=== PATIENT | male | born 1950 ===

== ENCOUNTER 2019-08-06 21:10 | Inpatient (IN) ==
--- NOTE | 2019-08-06 23:23 | Emergency Department Note ---
Lower Extremity Injury HPI - General Chief Complaint: Extremity Injury, Lower Stated Complaint: right knee injury Time Seen by Provider: 08/06/19 21:19 Source: patient Mode of arrival: wheelchair Limitations: physical limitation - History of Present Illness HPI Narrative: This patient took a fall at home twisted his right knee and has sustained a nondisplaced fracture of the proximal tibia. He is a postpolio patient and is in general weak and now cannot walk on the leg. - Related Data Home Medications Medication Instructions Recorded Confirmed No Known Home Meds 08/06/19 08/06/19 Allergies Allergy/AdvReac Type Severity Reaction Status Date / Time No Known Drug Allergies Allergy Unverified 08/06/19 21:17 Review of Systems All systems ED: reviewed and negative except as stated. Past Medical History - Past Medical History Surgical history ED: Reports: hip replacement, tonsillectomy - Social History smoking status: Current every day smoker Physical Exam His right knee shows some mild tenderness below the knee on the proximal tibia. Limitations: physical limitation General appearance: alert Head: atraumatic Eye: Present: normal appearance ENT: Present: normal exam Neck: Present: normal inspection Chest: Present: normal inspection Respiratory: Present: normal lung sounds bilaterally Cardiovascular: Present: regular rate, normal rhythm, normal heart sounds Neurological: Present: alert Psychiatric: Present: normal affect Skin: Present: warm, dry Course Vital Signs Temperature 97.8 F 08/06/19 21:12 Pulse Rate 78 08/06/19 21:12 Respiratory Rate 18 08/06/19 21:12 Blood Pressure 154/97 08/06/19 21:12 Pulse Oximetry (%) 97 08/06/19 21:12 Temperature 97.8 F 08/06/19 21:12 Pulse Rate 78 08/06/19 21:12 Respiratory Rate 18 08/06/19 21:12 Blood Pressure 154/97 08/06/19 21:12 Pulse Oximetry (%) 97 08/06/19 21:12 Extremity Injury, Lower - MDM Narrative Medical decision making narrative: X-ray shows a nondisplaced crack of the right proximal tibia that is confirmed on CT scan. I discussed case with Dr. Okeefe and we will admit him to the hospital for repair. - Radiology Data Radiology results reviewed: Yes I reviewed the patient's radiology results. Disposition Pt seen by FIELD INSPECTOR/PA only: No Clinical Impression: Tibia fracture Disposition: Xfer As Outpt/Obs ([facility]) Condition: Good Time of Disposition: 23:22
[2019-08-06] MEDS ORDERED: ONDANSETRON 4 MG/2 ML VIAL IV PRN (23:24)
[2019-08-07 00:26] LABS: Basophils # (Auto) 0.1 K/mcL (0.0-0.3); Basophils % (Auto) 0.5 % (0.0-2.0); Eosinophils # (Auto) 0 K/mcL (0.0-0.7); Eosinophils % (Auto) 0.2 % (0.0-7.0); Granulocytes % (Auto) 82.9 % (38.0-78.0); Hemoglobin 15.3 g/dL (13.5-16.5); Lymphocytes # (Auto) 1.7 K/mcL (1.5-4.8); Mean Cell Volume 88.2 fL (80.0-100.0); Mean Corpuscular HGB Conc 32.6 g/dL (31.0-36.0); Mean Platelet Volume 7.6 fL (7.4-10.4); Monocytes # (Auto) 0.6 K/mcL (0.1-0.9); Monocytes % (Auto) 4.4 % (1.0-12.0); Platelet Count 281 K/mcL (140-440); RBC 5.33 M/mcL (4.50-5.90); Red Cell Distribution Width 16.1 % (11.5-14.5); WBC 14.1 K/mcL (4.5-11.0)
[2019-08-07 01:11] LABS: Appearance,Urine CLEAR; Bacteria,Urine 0 /hpf (0); Bilirubin,Urine NEG (NEG); Color,Urine STRAW; Culture Indicated,Urine NO; Glucose,Urine (UA) NEGATIVE (NEG); Ketones,Urine 5/TR mg/dL (NEG); Leukocyte Esterase,Urine NEG /uL (NEG); Mucus,Urine FEW /hpf (0); Nitrate,Urine NEG (NEG); Protein,Urine NEG (NEG); Specific Gravity,Urine 1.006 (1.000-1.035); Urine Blood 0.2 mg/dL (<0.03); Urine RBC 0 /hpf (0-1); Urine Squamous Epithelial Cell 0 /hpf (0-4); Urine WBC 0 /hpf (0-4); Urobilinogen,Urine NEG (NEG)
[2019-08-07 01:23] LABS: ALT/SGPT 13 U/l (0-40); AST/SGOT 16 U/l (0-37); Albumin 4.2 gm/dL (3.2-5.2); Albumin/Globulin Ratio 1.3 (1.0-2.3); Alkaline Phosphatase 66 U/L (39-117); Bilirubin,Total 0.7 mg/dL (0.0-1.0); Blood Urea Nitrogen 18 mg/dl (8-23); Calcium 9.6 mg/dl (8.6-10.4); Carbon Dioxide 23 mmol/L (22-30); Chloride 100 mmol/L (96-108); Globulin 3.2 gm/dL (2.2-3.7); Glomerular Filtration Rate 111; Glucose 95 mg/dL (70-105)
[2019-08-07] MEDS ORDERED: HYDROcodone/APAP 5/325MG TABLET PO PRN ×2 (02:49→15:19)
[2019-08-07] MEDS ORDERED: HYDROcodone/APAP 5/325MG TABLET PO ONE (03:01)
[2019-08-07] MEDS: LACTATED RINGERS 1,000 ML IV SCH ×6 (03:10→22:21)
--- NOTE | 2019-08-07 04:06 | XRay Report ---
CLINICAL INFORMATION: pre-op COMPARISON: None. FINDINGS: Cardiomediastinal silhouette and pulmonary vessels are normal. Lung volumes are elevated suggesting COPD. No infiltrates or effusions. Moderate dextroscoliosis with severe degenerative disc disease throughout the thoracic spine with large marginal osteophytes appreciated IMPRESSION: Probable COPD. No acute disease Interpreted and Authenticated by: Ben Carcamo 08/07/19
--- NOTE | 2019-08-07 06:23 | Cat Scan Report ---
CLINICAL INFORMATION: fall injury right knee COMPARISON: Plain films 08/06/2019 TECHNIQUE: 0.625 mm helical slices were obtained from the right hip through the proximal one third of the tibia and fibula. Following reconstruction, 2.5 mm sagittal, coronal and axial reformatted images were processed and reviewed in bone and soft tissue windows. FINDINGS: A long intramedullary eloy transfixes an old solidly unified oblique fracture of the distal femoral diaphysis. There is mild bayoneting deformity. There is no evidence of resorption about the eloy or other surgical complication. A subtle acute, oblique fracture of the proximal tibial diaphysis and metaphysis is appreciated. No displacement. Moderate lipohemarthrosis is seen in the patellofemoral joint implies the fracture communicates with the joint space. Moderate deformity of the patella representing an malunified old unified patellar fracture. Patellofemoral and tibiofemoral joint spaces are, otherwise, normal. Increased soft tissue density seen within the right hip capsule most likely indicating effusion. There is a 3 mm loose body in the superior joint. Severe atrophy of the anterior compartment musculature and moderate atrophy of the posterior compartment musculature appreciated. No focal soft tissue lesions. IMPRESSION: Subtle obliquely oriented nondisplaced fracture of the proximal tibial metaphysis and diaphysis. Moderate lipohemarthrosis in the patellofemoral compartment indicates fracture communication with the joint space. ORIF old distal femoral diaphyseal fracture which is solid unified with mild bayoneting deformity. Solid unified malunified old patellar fracture. Severe atrophy of the anterior compartment musculature and moderate atrophy posterior compartment musculature. Increased intracapsular density density right hip likely represents an effusion. There is a 3 mm loose body superior to the femoral neck. Consider aspiration. Interpreted and Authenticated by: Ben Carcamo 08/07/19
--- NOTE | 2019-08-07 06:25 | XRay Report ---
CLINICAL INFORMATION: trauma COMPARISON: None. FINDINGS: There is an oblique hairline fracture through the proximal tibial metadiaphysis. Malunified old fracture of the patella demonstrates mild deformity. Patient also has a remote oblique fracture of the distal femoral diaphysis which is solid unified and transfixed IM eloy and screw. Mild resultant bayonet deformity. Moderate effusion present in the patellofemoral joint. Moderate patellofemoral and tibiofemoral degeneration noted IMPRESSION: Oblique hairline fracture of the proximal tibia metadiaphysis. Moderate patellar femoral effusion - likely posttraumatic. Malunified solid unified old patellar fracture. ORIF remote distal femoral fracture solid unified with bayonet deformity Interpreted and Authenticated by: Ben Carcamo 08/07/19
[2019-08-07] MEDS ORDERED: POLYETHYLENE GLYCOL 3350 17 GM PACKET PO PRN ×2 (06:41→15:19)
[2019-08-07] MEDS ORDERED: MAGNESIUM HYDROXIDE 30 ML ORAL.SUSP PO PRN ×2 (06:41→15:19)
[2019-08-07] MEDS ORDERED: FLEETS ADULT ENEMA PR PRN ×2 (06:41→15:19)
[2019-08-07] MEDS ORDERED: BISACODYL 10 MG SUPP.RECT PR PRN ×2 (06:41→15:19)
--- NOTE | 2019-08-07 07:35 | History and Physical Report ---
DATE OF ADMISSION: 08/07/2019 CHIEF COMPLAINT: Right proximal tibia fracture. HISTORY OF PRESENT ILLNESS: The patient is a 69-year-old male who has a history of polio, who yesterday evening fell while getting up out of his chair, resulting in a twisting type injury to his right lower extremity. He had immediate pain and inability to bear weight and was brought to the emergency department for evaluation and treatment. He was found to have a proximal tibia fracture with minimal displacement. He was admitted overnight. Upon presentation this morning he complains of right tibia pain. PAST MEDICAL HISTORY: Only significant for polio. PAST SURGICAL HISTORY: He had bilateral femoral shaft fractures and underwent surgery with IM nails. 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 He also had a muscle transplants for his right lower extremity to restore extensor mechanism. He had a hernia repair. ALLERGIES: No known drug allergies. MEDICATIONS: At home, none on a regular basis. FAMILY HISTORY: Noncontributory. SOCIAL HISTORY: He does smoke daily. He ambulates utilizing crutches and is very weak, primarily uses left lower extremity with the right side being weaker. He does have a son in [place] as well as a brother in [place]. REVIEW OF SYSTEMS: A 10-point review is otherwise negative other than mentioned above. PHYSICAL EXAMINATION: VITAL SIGNS: He is afebrile with temperature of 98.3, heart rate 66, blood pressure 127/79, O2 on room air 98% saturation. Heart: regular rate Pulmonary: clear bilaterally. EXTREMITIES: Reveals focal injury to his right lower extremity. Knee range of motion braces were removed. His skin is intact. His compartments are soft. His lower extremity has diffuse tenderness in the proximal aspect of his leg. Sensation intact in his foot. He can dorsiflex and plantarflex as well as flex all digits. RADIOGRAPHIC STUDIES: Plain films of his right knee demonstrate a nondisplaced transverse fracture of the proximal tibia and CT demonstrates same. LABORATORY DATA: He has a white count of 14.1, H and H of 15 and 47 with a platelet count of 281. Chemistry has a creatinine of 0.5, glucose 95. UA is negative. ASSESSMENT AND PLAN: A 69-year-old male with polio who has a closed right proximal tibia fracture with minimal displacement. I discussed this with him at length. He has several questions regarding treatment options. I discussed operative and nonoperative treatment both with him, which I think both are valid options. If treated nonoperatively he would be immobilized with restricted range of motion at least for a 6-week pamela until some callus forms and then allow full range of motion along with improved pain by that time. Surgery would allow him to have a range of motion right away, and likely improve his pain more quickly; however, his weightbearing status would still be protected up to 10-12 weeks so we would not restore his weightbearing status immediately. I had a lengthy discussion with him, along with his son. At this point, he does want to proceed with surgery. Plan will be for open reduction and internal fixation of his right proximal tibia fracture. I discussed the risks, benefits, alternatives, and postop recovery with him at length. He understands. I did have a hospitalist consulting as he does not seek regular medical treatment and evaluation but overall the labs appear to be healthy. DLW:[email or web address] Job ID: [id number] Doc ID: [id number] Prasanna Okeefe MD MTDD
[2019-08-07] MEDS ORDERED: DOCUSATE SODIUM 100 MG CAPSULE PO SCH (09:00)
[2019-08-07] MEDS ORDERED: IPRATROPIUM/ALBUTEROL 3 ML AMPUL.NEB NEB PRN ×2 (10:27→14:01)
[2019-08-07] MEDS ORDERED: SCOPOLAMINE 1 PATCH PATCH TOPICAL PRN (10:27)
[2019-08-07] MEDS ORDERED: ceFAZolin 2 GM in DEXTROSE 5% IN WATER 50 ML IV SCH (11:30)
[2019-08-07] MEDS ORDERED: DEXAMETHASONE 10 MG/ML VIAL IV ONE (12:34)
[2019-08-07] MEDS ORDERED: KETAMINE 100 MG/ML ML IV ONE (12:34)
[2019-08-07] MEDS ORDERED: fentaNYL 100 MCG/2 ML VIAL IV ONE (12:34)
[2019-08-07] MEDS ORDERED: ePHEDrine 50 MG/ML AMPUL IV ONE (12:34)
[2019-08-07] MEDS ORDERED: LIDOCAINE HCL/PF 100 MG/5 ML SYRINGE IV ONE (12:34)
[2019-08-07] MEDS ORDERED: MIDAZOLAM 2 MG/2 ML VIAL IV ONE (12:34)
[2019-08-07] MEDS ORDERED: ONDANSETRON 4 MG/2 ML VIAL IV ONE (12:34)
[2019-08-07] MEDS ORDERED: PROPOFOL 200 MG/20 ML VIAL IV ONE (12:34)
[2019-08-07] MEDS ORDERED: VANCOMYCIN 1 GM VIAL TOPICAL ONE (13:45)
[2019-08-07] MEDS ORDERED: 0.9 % SODIUM CHLORIDE 10 ML SYRINGE IV SCH ×2 (14:00→22:00)
[2019-08-07] MEDS ORDERED: METHOCARBAMOL 1,000 MG/10 ML VIAL IV PRN (14:01)
[2019-08-07] MEDS ORDERED: FLUMAZENIL 0.1 MG/ML ML IV PRN (14:01)
[2019-08-07] MEDS ORDERED: ONDANSETRON 4 MG/2 ML VIAL IV PRN ×3 (14:01→15:19)
[2019-08-07] MEDS ORDERED: fentaNYL 100 MCG/2 ML VIAL IV PRN (14:01)
[2019-08-07] MEDS ORDERED: diphenhydrAMINE 50 MG/ML VIAL IV PRN ×2 (14:01→15:19)
[2019-08-07] MEDS ORDERED: NALOXONE HCL 0.4 MG/ML VIAL IV PRN (14:01)
[2019-08-07] MEDS ORDERED: ACETAMINOPHEN 1,000 MG/100 ML BOTTLE IV ONE (14:01)
[2019-08-07] MEDS ORDERED: ePHEDrine 50 MG/ML AMPUL IV PRN (14:01)
[2019-08-07] MEDS ORDERED: ATROPINE SULFATE 0.4 MG/ML VIAL IV PRN (14:01)
[2019-08-07] MEDS ORDERED: PROMETHAZINE 25 MG/ML VIAL IV PRN ×2 (14:01→15:19)
[2019-08-07] MEDS ORDERED: LACTATED RINGERS 1,000 ML IV SCH ×2 (14:15→15:19)
--- NOTE | 2019-08-07 14:19 | Brief Operative Note ---
Date of procedure: 08/07/19 Pre-op diagnosis: right proximal tibia fracture Post-op diagnosis: same Procedure: ORIF right proximal tibia fracture Grafts/Implants: Yes (8 hole standard synthes lateral proximal tibia plate) Anesthesia: GETA, spinal Findings: proximal tibial fracture Complications: none Surgeon: Prasanna Okeefe [employer] Manager: Rc Barakat Estimated blood loss (cc): 30 Tourniquet Time (Minutes): 70 Specimens Removed/Pathology: none sent Condition: stable Disposition: PACU
[2019-08-07] MEDS ORDERED: BENZOCAINE/MENTHOL 1 LOZENGE PO PRN ×2 (14:24→15:19)
--- NOTE | 2019-08-07 14:31 | XRay Report ---
CLINICAL INFORMATION: right tibial orif COMPARISON: None. FINDINGS: Oblique fracture of the proximal tibial metadiaphysis has been reduced to anatomic alignment and transfixed by a lateral plate and multiple screws. Visualized tibiofemoral joint unremarkable IMPRESSION: ORIF proximal tibial metadiaphyseal fracture anatomically aligned Interpreted and Authenticated by: Ben Carcamo 08/07/19
[2019-08-07] MEDS: MEPERIDINE 25 MG/ML SYRINGE IV PRN ×2 (14:50→15:02)
[2019-08-07] MEDS: METOPROLOL TARTRATE 5 MG/5 ML VIAL IV PRN ×2 (15:01→15:10)
--- NOTE | 2019-08-07 15:07 | Operative Note ---
DATE OF OPERATION: 08/07/2019 PREOPERATIVE DIAGNOSIS: Left nondisplaced proximal tibia fracture. POSTOPERATIVE DIAGNOSIS: Left nondisplaced proximal tibia fracture. PROCEDURE PERFORMED: Open reduction and internal fixation of left proximal tibia fracture. SURGEON: Prasanna Okeefe M.D. AIRLINE PILOT: Rc Barakat PA-C. The PA's assistance was required for the safe and efficient completion of the entire case. This provider's expertise and technical skill were required throughout the case. The PA assisted with preoperative coordination, intraoperative retraction, wound closure, dressing and splint application, as well as postoperative documentation and care coordination. ANESTHESIA: Spinal with general anesthesia. IV FLUIDS: 2 liters lactated Ringer's. ESTIMATED BLOOD LOSS: 30 mL. TOURNIQUET TIME: 70 minutes at 250 mmHg. IV ANTIBIOTICS: 2 grams Ancef plus 1 gram vancomycin powder within the wound. IMPLANTS: An 8-hole Synthes lateral 4.5 plate. PATHOLOGY/LAB: None. INTRAOPERATIVE COMPLICATIONS: None apparent. INDICATION FOR PROCEDURE: The patient is a 69-year-old male who has a history of polio and significant weakness with limited ambulatory status but does ambulate with crutches. He sustained a fall resulting in complete fracture of his proximal tibia. It was minimally displaced. I discussed at length with him treatment options to include operative and nonoperative treatment. Either options are valid. Nonoperative treatment would decrease the risks associated with surgery which he is well aware of. However, there is a risk for displacement as he does fall, along with limiting his range of motion and left leg stiffness and decompensation. However, I do see still think this is reasonable. Upon further discussion with him and his son, they wished to proceed with surgery to improve his overall pain faster, as well as to allow for immediate range of motion. He understands this does not allow him to be full-weightbearing immediately post-surgery. However, he understands the risks associated with surgery and wished to proceed in that fashion. DESCRIPTION OF PROCEDURE: The patient was met in the preoperative holding area where site was verified and marked with the patient's input. He was then taken back to the operating room where he underwent successful spinal nerve block and was administered general anesthesia. He was placed supine on a regular table. The right lower extremity had a padded tourniquet placed about the proximal thigh. His extremities were scrubbed with chlorhexidine as well as Hibiclens wipes. The right lower extremity was then prepped and draped in the usual sterile fashion and placed in the ipsilateral hip bump. Surgical timeout was performed to verify patient identity, correct procedure being performed, and correct extremity being operated on. Everybody was in agreement. Esmarch was utilized to exsanguinate the extremity. Tourniquet was inflated to 250 mmHg. Approximately 10 cm incision curvilinear in nature was made from the mid-joint line distally two fingerbreadths off the tibial crest. He did have a lateral incision that I just connected proximally. Skin was sharply incised. Hemostasis was obtained down to the anterior compartment. Approximately a centimeter off the anterior compartment, the fascia was incised. I brought this proximal to the IT band in line with its fibers. I created anterior and posterior flaps to expose the tibial plateau laterally. From this location I slid in an 8-hole plate. Radiographically appeared to be the proper length to allow cortical fixation distally with leaving some holes empty to improve the flexibility of the construct, as well as proximally being proximal to the fracture. At this point I placed a K-wire through a hole proximally in the plate and used the Good Seedd device to compress the plate to the bone distally through a stab incision. This was then verified both on AP and lateral as slightly anterior position, but this is where it fit best on the lateral tibial plateau. This was a short-bend plate. At this point, I placed a nonlocking compression screw in the proximal fragment across the plate to compress the plate to the bone and subsequently placed three locking screws. At this point, utilizing the aiming guide on the plate I placed our distal screw percutaneously, as well as our second-most distal screw percutaneously to hold the plate in the shaft. I placed the kickstand screw along with one additional screw in the shaft and filled the proximal holes with locking screws. Overall, the fracture remained anatomically reduced. The construct was stable. X-rays were taken both AP and lateral. I was happy with the overall fixation. At this point, we removed all the retractors, the aiming guide from the plate. The wound was copiously irrigated with normal saline. I placed 1 gram vancomycin powder deep to the wound. I closed the IT band as well as the fascia over the anterior compartment with 0 Vicryl. Subcutaneous tissue was closed with 3-0 Vicryl, and skin was closed with bridgette. The percutaneous poke holes were closed in layered fashion with 3-0 Vicryl and bridgette as well. The leg was then cleaned and dried. Xeroform along with fluffs, Webril, and Pedro wrap were placed. The patient was placed into a knee brace as well and transferred to PACU in stable condition. POSTOPERATIVE PLAN: Patient will be readmitted back to the floor. He resides by himself and likely needs a short-term stay at a rehabilitation facility. DLW:elaine Job ID: [id number] Doc ID: [id number] Prasanna Okeefe MD MTDD
[2019-08-07] MEDS: SENNOSIDES 1 TABLET PO SCH (20:30)
[2019-08-07] MEDS ORDERED: ceFAZolin 1 GM VIAL IV SCH (20:30)
[2019-08-07] MEDS: DOCUSATE SODIUM 100 MG CAPSULE PO SCH (20:31)
[2019-08-07] MEDS ORDERED: SENNOSIDES 1 TABLET PO SCH (21:00)
[2019-08-07] MEDS: 0.9 % SODIUM CHLORIDE 10 ML SYRINGE IV SCH ×2 (22:04→22:05)
[2019-08-07] MEDS: ceFAZolin 1 GM VIAL IV SCH (22:16)
[2019-08-08] MEDS: 0.9 % SODIUM CHLORIDE 10 ML SYRINGE IV SCH ×6 (04:41→21:08)
[2019-08-08] MEDS: LACTATED RINGERS 1,000 ML IV SCH ×2 (04:41→04:54)
[2019-08-08] MEDS: ceFAZolin 1 GM VIAL IV SCH (07:21)
[2019-08-08] MEDS ORDERED: ACETAMINOPHEN 325 MG TABLET PO PRN (07:41)
--- NOTE | 2019-08-08 07:50 | Orthopedic Progress Note ---
Subjective Patient information: Note initiated : 08/08/19 at 7:42 am Service Date, if different from initiated Date: [] Patient: Ken Zarate 69 y/o M admitted on 08/07/19 for right knee injury. Chief Complaint: [] Interval history: No acute issues overnight, pain controlled. No nausea/chest pain/shortness of b reath. Objective Vital signs: Vital Signs Temp Pulse Resp BP Pulse Ox 08/08/19 03:11 97.8 F 63 14 129/86 98 08/07/19 23:50 98.7 F 58 L 12 114/73 97 08/07/19 20:00 97.6 F 61 16 123/78 98 08/07/19 17:50 18 149/84 98 08/07/19 17:35 18 136/83 98 08/07/19 17:05 18 146/92 98 08/07/19 16:35 18 145/91 98 08/07/19 16:20 16 148/94 97 08/07/19 16:05 16 148/93 98 08/07/19 15:50 16 153/101 99 08/07/19 15:35 16 169/93 98 08/07/19 15:14 99.5 F H 69 15 183/91 99 08/07/19 15:10 67 15 160/106 99 08/07/19 15:00 86 15 173/103 97 08/07/19 14:50 92 H 14 178/115 99 08/07/19 14:45 88 16 178/102 100 08/07/19 14:41 99 F 83 15 164/100 99 08/07/19 08:00 97.2 F 69 20 101/72 99 Intake and Output 08/07/19 08/08/19 08/08/19 21:59 05:59 13:59 Intake Total 4780 2058 Output Total 835 2700 Balance 3945 -052 Intake: IV 100 1858 Lactated Ringers 1,000 ml @ 150 1858 mls/hr IV .Q6H40M [facility] Rx#: [id number] Oral 880 200 IV - Manual Only 3800 Output: Urine Catheter Amount 150 2300 Void Amount 625 400 Estimated Blood Loss 60 Other: Meal Dinner Urine Appearance Clear Urine Color Dark Yellow Bright Yellow Light Dasha Urine Odor Normal Weight 170 lb Intake & Output: Intake & Output 08/07/19 08/08/19 08/08/19 21:59 05:59 13:59 Intake Total 4727 2058 Output Total 834 4390 Balance 3945 -642 Weight 170 lb Intake: IV 100 1858 Lactated Ringers 1,000 ml @ 150 1858 mls/hr IV .Q6H40M [facility] Rx#: [id number] Oral 880 200 IV - Manual Only 3800 Output: Urine Catheter Amount 150 2300 Void Amount 625 400 Estimated Blood Loss 60 Other: Meal Dinner Urine Appearance Clear Urine Color Dark Yellow Bright Yellow Light Dasha Urine Odor Normal Dressing: Yes clean, Yes intact Range of motion: 0-90 degrees Neurological exam IM: Yes neurovascular intact - Labs CBC & BMP: 08/06/19 23:38 08/07/19 00:00 Labs: 08/06/19 23:38 Hgb 15.3 Hct 47.0 Assessment and Plan (1) Tibia fracture POD 1 s/p right ORIF proximal tibia fracture -- PT/OT, toe touch weight bearing -- ROM 0-90 degrees ---------heel slides, quad sets, straight leg raise ok if able ---------OK to leave brace off while in bed/sleeping but does need it with ambulation. -- Dressing change POD2 -- oral pain medications ---------will change to tramadol, tylenol as he doesn't like how norco makes him feel -- d/c jc -- regular diet -- Prophy: IS, scd's, lovenox starting tonight, ambulation -- Dispo: will require SNF placement as he lives alone along with having baseline weakness seconardy to Polio Status: Acute
[2019-08-08] MEDS: DOCUSATE SODIUM 100 MG CAPSULE PO SCH ×2 (08:27→21:07)
[2019-08-08] MEDS: traMADol 50 MG TABLET PO PRN (18:04)
[2019-08-08] MEDS ORDERED: ENOXAPARIN 40 MG/0.4 ML SYRINGE SQ SCH (21:00)
[2019-08-08] MEDS: SENNOSIDES 1 TABLET PO SCH (21:07)
[2019-08-08] MEDS: ENOXAPARIN 40 MG/0.4 ML SYRINGE SQ SCH (21:07)
[2019-08-09] MEDS: traMADol 50 MG TABLET PO PRN (02:54)
[2019-08-09] MEDS: 0.9 % SODIUM CHLORIDE 10 ML SYRINGE IV SCH ×6 (05:49→22:02)
--- NOTE | 2019-08-09 06:15 | Orthopedic Progress Note ---
Subjective Patient information: Note initiated : 08/09/19 at 6:15 am Service Date, if different from initiated Date: [] Patient: eKn Zarate 69 y/o M admitted on 08/07/19 for right tibial plateau fracture. He is 2 days s/p ORIF of the right tibial plateau facture with Dr. Okeefe. Overall doing well this AM with very little pain at rest and no other complaints this morning. The Tramadol is working better after switching from [place]. BP elevated this AM. Denies SOB,, CP, N/V, abd pain, dizziness, new onset numbness/tingling. Chief Complaint: right leg pain. Pertinent ROS: negative except per HPI. Objective Vital signs: Vital Signs Temp Pulse Resp BP BP Pulse Ox 08/09/19 03:00 98.5 F 64 16 155/91 98 08/08/19 23:01 97.6 F 77 14 114/69 98 08/08/19 20:00 98.8 F 71 16 111/72 98 08/08/19 19:00 97 08/08/19 12:00 98.6 F 18 131/83 99 08/08/19 11:00 66 08/08/19 09:11 98 08/08/19 08:23 98.0 F 18 149/90 08/08/19 07:42 98.1 F 65 16 143/87 08/08/19 07:34 66 Intake and Output 08/08/19 08/09/19 08/09/19 21:59 05:59 13:59 Intake Total 800 300 Output Total 2525 200 Balance 800 -2225 -200 Intake: Oral 800 300 Output: Urine Catheter Amount 1800 Void Amount 725 200 Other: Meal Dinner Percent of Meal Consumed 75% Feeding Ability Independent Urine Appearance Clear Clear Uretheral (De [place] Garza) Clear Urine Color Bright Yellow Pale Uretheral (De La Garza) Light Dasha Weight 170 lb Intake & Output: Intake & Output 08/08/19 08/09/19 08/09/19 21:59 05:59 13:59 Intake Total 800 300 Output Total 2525 200 Balance 800 -2225 -200 Weight 170 lb Intake: Oral 800 300 Output: Urine Catheter Amount 1800 Void Amount 725 200 Other: Meal Dinner Percent of Meal Consumed 75% Feeding Ability Independent Urine Appearance Clear Clear Uretheral (De La Garza) Clear Urine Color Bright Yellow Pale Uretheral (De La Garza) Light Dasha Incision: Yes healing, No draining, No inflamed, Yes clean and dry Dressing: Yes clean, Yes dry, Yes intact Weight bearing status: partial (toe touch WB) Neurological exam IM: Yes alert, Yes oriented X3, Yes neurovascular intact Extremities exam IM: No calf tenderness, Yes normal capillary refill, No Mark's sign, Yes Foot pink and warm, Yes neurovascular intact - Labs CBC & BMP: 08/06/19 23:38 08/07/19 00:00 Labs: 08/06/19 23:38 Hgb 15.3 Hct 47.0 Assessment and Plan - Narrative A/P Narrative: POD #2 s/p right ORIF proximal tibia fracture -- PT/OT, continue toe touch weight bearing -- ROM 0-90 degrees---heel slides, quad sets, straight leg raise ok if able --Wear brace with transfers/ambulation. -- Dressing change today--Aquacel -- continue Tramadol for pain -- Prophy: IS, scd's, lovenox, ambulation -- Dispo: SNF placement--[facility] tomorrow.
[2019-08-09] MEDS: DOCUSATE SODIUM 100 MG CAPSULE PO SCH ×2 (10:09→21:32)
[2019-08-09] MEDS: ENOXAPARIN 40 MG/0.4 ML SYRINGE SQ SCH (10:09)
[2019-08-09] MEDS: SENNOSIDES 1 TABLET PO SCH (21:32)
[2019-08-10] MEDS: 0.9 % SODIUM CHLORIDE 10 ML SYRINGE IV SCH ×4 (04:48→21:15)
--- NOTE | 2019-08-10 07:59 | Orthopedic Progress Note ---
Subjective Patient information: Note initiated : 08/10/19 at 7:56 am Service Date, if different from initiated Date: [] Patient: Ken Zarate 69 y/o M admitted on 08/07/19 for right knee injury. Chief Complaint: [] Interval history: No acute events overnight. Pain well controlled. No chest pain/shortness of br eath. Objective Vital signs: Vital Signs Temp Pulse Resp BP Pulse Ox 08/10/19 03:18 98.2 F 73 14 150/82 98 08/10/19 00:00 98.9 F 66 16 157/87 99 08/09/19 20:00 98.3 F 80 16 141/89 99 08/09/19 17:40 98 08/09/19 16:00 98.6 F 18 134/89 98 08/09/19 12:00 97.7 F 89 18 167/89 98 08/09/19 10:54 98 08/09/19 08:00 64 Intake and Output 08/09/19 08/10/19 08/10/19 21:59 05:59 13:59 Intake Total 1600 Output Total 625 675 Balance 975 -675 Intake: Oral 1600 Output: Void Amount 625 675 Other: Meal Dinner Percent of Meal Consumed 75% Feeding Ability Independent Urine Appearance Cloudy Urine Color Bright Yellow Urine Odor Normal Stool Size Small Stool Color Brown Stool Consistency Soft Elana Loose Weight 169 lb 14.4 oz Intake & Output: Intake & Output 08/09/19 08/10/19 08/10/19 21:59 05:59 13:59 Intake Total 1600 Output Total 625 675 Balance 975 -675 Weight 169 lb 14.4 oz Intake: Oral 1600 Output: Void Amount 625 675 Other: Meal Dinner Percent of Meal Consumed 75% Feeding Ability Independent Urine Appearance Cloudy Urine Color Bright Yellow Urine Odor Normal Stool Size Small Stool Color Brown Stool Consistency Soft Elana Loose Dressing: Yes clean, Yes dry, Yes intact Weight bearing status: non Range of motion: 5-95 Neurological exam IM: Yes neurovascular intact - Labs CBC & BMP: 08/06/19 23:38 08/07/19 00:00 Labs: 08/06/19 23:38 Hgb 15.3 Hct 47.0 Assessment and Plan (1) Tibia fracture POD 3 s/p right ORIF proximal tibia fracture -- PT/OT, toe touch weight bearing -- ROM 0-90 degrees ---------heel slides, quad sets, straight leg raise ok if able ---------OK to leave brace off while in bed/sleeping but does need it with ambulation. -- Pain well controlled on tramadol -- Prophy: IS, scd's, lovenox, ambulation -- Dispo: SNF placement pending for tomorrow as he lives alone along with having baseline weakness secondary to Polio Status: Acute
--- NOTE | 2019-08-10 08:11 | Discharge Summary ---
Providers - Providers Patient information: Note initiated : 08/10/19 at 8:07 am Service Date, if different from initiated Date: [] Patient: Ken Zarate 69 y/o M admitted on 08/07/19 for right knee injury. Chief Complaint: [] Discharge date: 08/11/19 Hospitalization Hospital Course: Patient admitted on 07 Aug 2019 with a closed right proximal tibia fracture. He underwent ORIF on Aug and admitted for post operative recovery. He has had an uneventful hospital course. His pain is well controlled and remained neurovascularly intact. He tolerated an oral diet, voided spontaneously and had bowel movements. He worked with therapy. He remained hemodynamically stable. He was [facility] to an [facility] for rehab has he lives alone and has significant weakness secondary to polio. Discharge diagnosis: Right proximal tibia fracture Reason for admission: Right closed proximal tibia fracture Procedures: ORIF right proximal tibia fracture on 07 Aug 2019 Complications: None Exam - Exam Incision healing: Yes Incision draining: No Incision red: No Incision swollen: No Incision inflamed: No Clean and dry: Yes Weight bearing status: none Range of motion: 0-90 degrees Ortho Discharge Plan - General - Patient Instructions Diet: Regular Diet Activity: non weight bearing Dressing Care: Aquacel Ag - leave on for 5 days Additional Instructions: Obtain a quote from your dentist and submit to [facility]. Schedule an appointment with your dentist for replacement of the tooth. The dentist will bill [facility] for dental care. - Problem Maintenance (1) Tibia fracture Status: Acute Qualifiers: Tibia location: proximal Fracture type: closed Fracture morphology: other fracture Laterality: right Fracture healing: with routine healing - Follow Up Plan Follow Up Appointments: Rc Barakat PA-C [Physician Transport Aide] - (12-14 days) Disposition: Xfer SNF Prognosis: Fair Rehab Potential: Fair I certify that the patient requires SNF services: Yes Overall status at discharge: patient is progressing back to baseline - Orders For Discharge Prescriptions: traMADol [Ultram] 50 mg PO Q4HP PRN #30 tab PRN Reason: Pain Prescription Printed Pending Studies Resuscitation Status Full Code Diet Regular Diet Start MonAug 07 1423 Docusate Sodium (Colace) 100 mg PO BID SARA Last Admin: 08/09/19 21:32 Dose: Not Given Documented by: Admin: 08/09/19 10:09 Dose: Not Given Documented by: Admin: 08/08/19 21:07 Dose: 100 mg Documented by: Admin: 08/08/19 08:27 Dose: 100 mg Documented by: Admin: 08/07/19 20:31 Dose: 100 mg Documented by: JESSE Enoxaparin Sodium (Lovenox) 40 mg SQ DAILY [facility] Last Admin: 08/09/19 10:09 Dose: 40 mg Documented by: Admin: 08/08/19 21:07 Dose: 40 mg Documented by: HECTOR Morphine Sulfate (Morphine) 1 - 2 mg IV Q2HP PRN; Protocol PRN Reason: Per Pain Protocol Last Admin: 08/08/19 12:38 Dose: 2 mg Documented by: Admin: 08/07/19 16:36 Dose: 2 mg Documented by: HUNTER Ondansetron HCl (Zofran) 4 mg IV Q4HP PRN; Protocol PRN Reason: Nausea And Vomiting Last Admin: 08/07/19 16:40 Dose: 4 mg Documented by: HUNTER Clement (Senokot) 2 tab PO HS [facility] [place] Last Admin: 08/09/19 21:32 Dose: Not Given Documented by: Admin: 08/08/19 21:07 Dose: Not Given Documented by: Admin: 08/07/19 20:30 Dose: 2 tab Documented by: JESSE Sodium Chloride (Saline Flush) 10 ml IV Q8 [facility] [place] Last Admin: 08/10/19 04:48 Dose: Not Given Documented by: Admin: 08/09/19 21:32 Dose: Not Given Documented by: Admin: 08/09/19 15:55 Dose: Not Given Documented by: Admin: 08/09/19 05:49 Dose: Not Given Documented by: Admin: 08/08/19 21:08 Dose: Not Given Documented by: Admin: 08/08/19 16:13 Dose: 10 ml Documented by: Admin: 08/08/19 04:42 Dose: Not Given Documented by: Admin: 08/07/19 22:05 Dose: Not Given Documented by: JESSE Tramadol HCl (Ultram) 50 mg PO Q4HP PRN PRN Reason: Pain Last Admin: 08/09/19 02:54 Dose: 50 mg Documented by: Admin: 08/08/19 18:04 Dose: 50 mg Documented by: [email or web address] Shift Summary 08/10/19 03:21 Shift Summary by Kaitlynn Elkins A&O x4, pleasant and cooperative with cares. Pt slept well this shift. Did not get OOB this shift - used urinal to void. Voiding adequate amounts. During the day, up to BSC with Sera Steady and 2 assist. Toe touch weight bearing to R side. Pt has severe weakness especially to the L side from hx of polio. No complaints of pain this shift, no complaints of nausea. VSS on RA. 18G IV to the R wrist is SL and patent. Dressing to R lower extremity is C/D/I. Refused stool softeners - 3 BMs yesterday day shift. No BM this shift. Will update at bedside. Initialized on 08/10/19 03:21 - END OF NOTE
[2019-08-10] MEDS: ENOXAPARIN 40 MG/0.4 ML SYRINGE SQ SCH (08:41)
[2019-08-10] MEDS: DOCUSATE SODIUM 100 MG CAPSULE PO SCH ×2 (08:42→21:15)
[2019-08-10] MEDS: SENNOSIDES 1 TABLET PO SCH (21:15)
[2019-08-11] MEDS: 0.9 % SODIUM CHLORIDE 10 ML SYRINGE IV SCH (04:17)
--- NOTE | 2019-08-11 08:06 | Orthopedic Progress Note ---
Subjective Patient information: Note initiated : 08/11/19 at 8:04 am Service Date, if different from initiated Date: [] Patient: Ken Zarate 69 y/o M admitted on 08/07/19 for right knee injury. Chief Complaint: [] Principal diagnosis: Right proximal tibia fracture Interval history: No acute issues over last 24 hours. Pain is controlled, getting stronger and more independent. Objective Vital signs: Vital Signs Temp Pulse Resp BP BP Pulse Ox 08/11/19 04:15 98.2 F 72 18 135/95 98 08/10/19 23:38 98.1 F 92 H 18 132/86 97 08/10/19 20:00 98.1 F 79 18 115/70 98 08/10/19 16:00 98.2 F 66 14 150/92 98 Intake and Output 08/10/19 08/11/19 08/11/19 21:59 05:59 13:59 Intake Total 800 400 Output Total 1250 1125 125 Balance -450 -725 -125 Intake: Oral 800 400 Output: Void Amount 1250 1125 125 Other: Meal Dinner Percent of Meal Consumed 100% Feeding Ability Independent Urine Appearance Clear Clear Clear Urine Color Bright Yellow Bright Yellow Dark Yellow Urine Odor Normal Stool Size Moderate Stool Color Brown Stool Consistency Soft Formed Weight 166 lb Intake & Output: Intake & Output 08/10/19 08/11/19 08/11/19 21:59 05:59 13:59 Intake Total 800 400 Output Total 1250 1125 125 Balance -450 -725 -125 Weight 166 lb Intake: Oral 800 400 Output: Void Amount 1250 1125 125 Other: Meal Dinner Percent of Meal Consumed 100% Feeding Ability Independent Urine Appearance Clear Clear Clear Urine Color Bright Yellow Bright Yellow Dark Yellow Urine Odor Normal Stool Size Moderate Stool Color Brown Stool Consistency Soft Formed Incision clean and dry: Yes Dressing: Yes clean, Yes dry, Yes intact Weight bearing status: non (toe touch weight bearing) Range of motion: 0-90 Neurological exam IM: Yes neurovascular intact - Labs CBC & BMP: 08/06/19 23:38 08/07/19 00:00 Labs: 08/06/19 23:38 Hgb 15.3 Hct 47.0 Assessment and Plan (1) Tibia fracture POD 4 s/p right ORIF proximal tibia fracture -- PT/OT, toe touch weight bearing -- ROM 0-90 degrees ---------heel slides, quad sets, straight leg raise ok if able ---------OK to leave brace off while in bed/sleeping but does need it with ambulation. -- Pain well controlled on tramadol -- Prophy: IS, scd's, lovenox, ambulation -- Dispo: planning for [facility] facility today Status: Acute Qualifiers: Tibia location: proximal Fracture type: closed Fracture morphology: other fracture Laterality: right Fracture healing: with routine healing
[2019-08-11] MEDS: DOCUSATE SODIUM 100 MG CAPSULE PO SCH (09:28)
[2019-08-11] MEDS: ENOXAPARIN 40 MG/0.4 ML SYRINGE SQ SCH (09:28)
== END 2019-08-11 10:40 | DRG 494 ==
LOC: ICU 21:10 → ED 21:10 → OBSVTOIN 08-07 01:08 → ICU 08-07 01:23
PROVIDERS: ADMIT Orthopaedic Surgery; ATTEND Orthopaedic Surgery